=== PATIENT | female | born 1965 | race Caucasian/White ===

== ENCOUNTER 2020-06-04 08:22 | Outpatient (CLI) | payer BC, SELFPAY ==
--- NOTE | ~2020-06-04 | MM_ITS ---
EXAMINATION: MM screening barb BI w paul HISTORY: Screening mammogram TECHNIQUE: Craniocaudal and mediolateral oblique 3-D tomosynthesis images were obtained and synthetic 2-D images were generated. CAD analysis was submitted and interpreted. COMPARISON: 06/10/2019, 11/24/2017, 10/09/2015 bilateral digital screening mammogram examinations BREAST PARENCHYMAL COMPOSITION: There are scattered areas of fibroglandular density. FINDINGS: Biopsy markers are noted on the right; history of right partial mastectomy and chemotherapy in 2013 for right breast cancer, as well as left breast reduction surgery in 2012. There is no evidence of suspicious mass, calcification, or architectural distortion to suggest malign jeanette in either breast. There has been no suspicious interval change. IMPRESSION: 1. No mammographic evidence of malignancy. 2. Recommend routine screening mammography in one year. BI-RADS Category 2: Benign finding(s). Reviewed, dictated and finalized at location A.
== END 2020-06-04 08:23 | disposition home or self-care (01) ==
PROVIDERS: Visit Provider Internal Medicine Medical Oncology
DX: Z12.31 Encounter for screening mammogram for malignant neoplasm of breast (principal)
CPT/HCPCS: 77063; 77067

== ENCOUNTER 2021-04-07 05:21 | Emergency (ER) | payer BC, SELFPAY ==
--- NOTE | ~2021-04-07 | XR_ITS ---
XR wrist RT min 3V 04/07/2021 06:01 Indication: Right wrist pain and swelling Procedure: 4 views right wrist Comparison: No prior studies for comparison. 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 In there is a subtle triquetral fracture dorsally with soft tissue swelling. There is an old radial styloid fracture. Lucency in the lunate, likely degenerative. Impression: 1: Age-indeterminate triquetral fracture. Correlate for point tenderness. Reviewed, dictated and finalized at location A. Impression: 1: Age-indeterminate triquetral fracture. Correlate for point tenderness.
[2021-04-07 05:27] VITALS: BP 135/92; PULSE 86; RESP 16; TEMP 36.1; O2SAT 98
--- NOTE | 2021-04-07 05:39 | ED.UPPEXIN ---
HPI - Extremity Injury (Upper) General Chief Complaint: Extremity Injury, Upper Stated Complaint: Broken wrist Time Seen by Provider: 04/07/21 05:29 History of Present Illness HPI narrative: 55 yo female w/ h/o right wrist fusion presents to the ED for a wrist injury. She fell onto outstretched hand yesterday. She had pain at the time. This has gotten worse throughout the night. This is associated with swelling in the dorsal wrist. Related Data Home Medications Medication Instructions Recorded Confirmed cetirizine [Zyrtec] 10 mg DAILY 04/07/21 Allergies Allergy/AdvReac Type Severity Reaction Status Date / Time CEPHALEXIN MONOHYDRATE Allergy Severe HIVES Uncoded 04/07/21 05:29 OXYCODONE HCL Allergy Severe FLUSHING Uncoded 04/07/21 05:29 Review of Systems Constitutional: Constitutional: Denies weakness Cardiovascular: Cardiovascular: Denies chest pain Respiratory: Respiratory: Denies dyspnea Musculoskeletal: Musculoskeletal: Denies back pain Neurologic: Denies numbness and Denies weakness COUNTS INCLUDE 234 BEDS AT THE [facility] Family History Family History Father Malignant neoplasm of prostate Family history of throat cancer Social History Social History Smoking status: Never smoker Alcohol intake: never Gender identity (if verbalized by the patient): Female Sexual Orientation (if Verbalized by the Patient): Straight or Heterosexual Exam Const: General: no acute distress and alert Orientation/consciousness: patient oriented x3 HENMT: Head: normal to inspection Resp: Effort & Inspection: normal respiratory effort Auscultation: clear to auscultation bilaterally Cardio: Rate: regular rate Rhythm: regular rhythm Other: 2 + right radial Skin: General skin exam: normal color Wounds: no wounds Neuro: General: patient oriented x3, moves all extremities and no focal motor deficits Speech: normal speech Extrem: Other: swelling and mildly increased warmth to dorsal right wrist. Course Vital Signs Vital signs: Vital Signs Temperature 36.1 C L 04/07/21 05:27 Pulse Rate 86 04/07/21 05:27 Respiratory Rate 16 04/07/21 05:27 Blood Pressure 135/92 H 04/07/21 05:27 Pulse Oximetry 98 04/07/21 05:27 Temperature 36.1 C L 04/07/21 05:27 Pulse Rate 71 04/07/21 06:52 Respiratory Rate 16 04/07/21 06:52 Blood Pressure 120/90 04/07/21 06:52 Pulse Oximetry 98 04/07/21 06:52 Procedures Orthopedic Splinting/Casting Injury #1: Side: right Upper Extremity Injury Location: wrist Splint: customized in ED OCL: volar Pre-Procedure Neuro Vascular Exam: normal Post-Procedure Neuro Vascular Exam: normal MDM - Extremity Injury (Upper) Differential Diagnosis Differential diagnosis: Likely sprain and strain of wrist and fracture of wrist Medical Records Attestation: I reviewed the patient's medical records. Discharge Plan Discharge Clinical Impression: Fracture of triquetrum of right wrist Qualifiers: Encounter type: initial encounter Fracture type: closed Fracture alignment: nondisplaced Qualified Code(s): S62.114A - Nondisplaced fracture of triquetrum [cuneiform] bone, right wrist, initial encounter for closed fracture Patient Disposition: Home, Self-Care Condition: Stable Instructions: Antibiotic Form, Wrist Fracture in Adults (ED) Prescriptions: No Action cetirizine [Zyrtec] 10 mg Tablet 10 mg DAILY RF: 0 Follow-up/Referrals: Damon Borjas MD [Physician] - PHYSICIAN,TODDLER NANNY [Primary Care Provider] -
[2021-04-07 06:52] VITALS: BP 120/90; PULSE 71; RESP 16; O2SAT 98
--- NOTE | 2021-04-07 06:53 | PC.NURSE ---
Pt requesting pain medication before application of orthoglass splint. Rates pain 7/10, aching. EDP notified.
[2021-04-07] MEDS: ACETAMINOPHEN 500 MG TABLET 1000 MG PO (06:57)
== END 2021-04-07 08:21 | disposition home or self-care (01) ==
PROVIDERS: Emergency Provider Emergency Medicine
DX: S62.114A Nondisplaced fracture of triquetrum [cuneiform] bone, right wrist, initial encounter for closed fracture (principal); W19.XXXA Unspecified fall, initial encounter
CPT/HCPCS: 29125; 73110; 99284; A9270

== ENCOUNTER 2021-10-29 09:04 | Outpatient (CLI) | payer BC, SELFPAY ==
--- NOTE | ~2021-10-29 | MM_ITS ---
EXAMINATION: MM screening barb BI w paul HISTORY: Screening TECHNIQUE: Craniocaudal and mediolateral oblique 3-D tomosynthesis images were obtained and synthetic 2-D images were generated. CAD analysis was submitted and interpreted. COMPARISON: Comparison to multiple prior studies sequentially, with oldest reviewed study dated 03/31. BREAST PARENCHYMAL COMPOSITION: Breast composed of scattered areas of fibroglandular density FINDINGS: There is no evidence of suspicious mass, calcification, or architectural distortion to sugg est malignancy in either breast. There has been no suspicious interval change. IMPRESSION: 1. No mammographic evidence of malignancy. 2. Recommend routine screening mammography in one year. BI-RADS Category 1: Negative Reviewed, dictated and finalized at location A. WARE DEVELOPER MID LEVEL
== END 2021-10-29 09:05 | disposition home or self-care (01) ==
PROVIDERS: Visit Provider Internal Medicine Medical Oncology
DX: Z12.31 Encounter for screening mammogram for malignant neoplasm of breast (principal)
CPT/HCPCS: 77063; 77067

== ENCOUNTER 2023-01-10 08:48 | Outpatient (CLI) | payer BC, SELFPAY ==
--- NOTE | ~2023-01-10 | MM_ITS ---
EXAMINATION: MM screening barb BI w paul HISTORY: Screening mammogram, history of right breast cancer TECHNIQUE: Craniocaudal and mediolateral oblique 3-D tomosynthesis images were obtained and synthetic 2-D images were generated. CAD analysis was submitted and interpreted. COMPARISON: 10/29/2021, 06/04/2020, 05/14/2019 BREAST PARENCHYMAL COMPOSITION: There are scattered areas of fibroglandular density. FINDINGS: There are stable lumpectomy changes of the right breast. No suspicious mass, calcification, or architectural distortion are identified in either breast to suggest malignancy. There has been no suspicious interval change. IMPRESSION: 1. No mammographic evidence of malignancy. 2. Recommend routine screening mammography in one year. BI-RADS Category 2: Benign finding(s). Reviewed, dictated and finalized at location A.
== END 2023-01-10 08:49 | disposition home or self-care (01) ==
PROVIDERS: PCP Family Medicine; Visit Provider Family Medicine
DX: Z12.31 Encounter for screening mammogram for malignant neoplasm of breast (principal)
CPT/HCPCS: 77063; 77067

== ENCOUNTER 2024-02-08 09:11 | Outpatient (CLI) | payer BC, SELFPAY ==
--- NOTE | ~2024-02-08 | MM_ITS ---
EXAMINATION: MM screening barb BI w paul HISTORY: Screening TECHNIQUE: Craniocaudal and mediolateral oblique 3-D tomosynthesis images were obtained and synthetic 2-D images were generated. CAD analysis was submitted and interpreted. COMPARISON: Comparison to multiple prior studies sequentially, with oldest reviewed study dated 10/2022. BREAST PARENCHYMAL COMPOSITION: Not dense: There are scattered areas of fibroglandular density. FINDINGS: There is no evidence of suspicious mass, calcification, or architectural distortion to sugg est malignancy in either breast. There has been no suspicious interval change. IMPRESSION: 1. No mammographic evidence of malignancy. 2. Recommend routine screening mammography in one year. BI-RADS Category 1: Negative Reviewed, dictated and finalized at location B.
== END 2024-02-08 09:12 | disposition home or self-care (01) ==
PROVIDERS: PCP Family Medicine; Visit Provider Family Medicine
DX: Z12.31 Encounter for screening mammogram for malignant neoplasm of breast (principal)
CPT/HCPCS: 77063; 77067

== ENCOUNTER 2024-08-07 10:14 | Outpatient (CLI) | payer BC, SELFPAY ==
--- NOTE | ~2024-08-07 | MR_ITS ---
EXAMINATION: MR shoulder LT wo con DATE: 08/07/2024 10:57 INDICATION: Left shoulder pain TECHNIQUE: Magnetic resonance imaging (MRI) of the left shoulder was performed without intravenous co ntrast. Sequences included axial PD-weighted FS FSE, coronal oblique PD-weighted FS FSE, coronal obli que T2-weighted FS FSE, sagittal PD-weighted FS FSE, and sagittal T1-weighted SE. COMPARISON: None. FINDINGS: Coracoacromial arch: The acromion undersurface is curved in morphology (type II) with small to moderate-sized anterior and lateral subacromial spurs. There is mild thickening of the acromial side of the coracoacromial ligam ent. Mild acromioclavicular osteoarthritis with mild cystic change at both sides of the joint space a nd tiny inferiorly directed osteophyte at the lateral clavicle. Rotator cuff: Moderate supraspinatus and infraspinatus tendinopathy. There is attenuation of the distal 3 cm the te ndon with partial-thickness tear. There is fraying of the distalmost tendon but no clearly defined ar ticular or bursal sided tear plane. There is a 14 x 9 x 4 mm globular region of low signal intensity along the bursal side of the distal infraspinatus tendon. This corresponds to the amorphous region of calcific density on prior radiographs consistent with calcific tendinitis. Ganglion cyst extending a long a longitudinal split tear of the infraspinatus tendon which extends 4 cm medially from the middl e facet footplate of the tendon with a ganglion cyst measuring up tor 6 x 5 mm in maximal orthogonal dimensions at the level of the glenoid humeral joint line. The teres minor tendon is normal. Mild sub scapularis tendinopathy. There is a split tear occurring between the bursal side of the subscapularis tendon which remains attached to the intact transverse humeral ligament and the deeper portion of th e tendon which remains attached to the lesser tuberosity footplate. The tear defect extends 1 cm medi ally from the medial rim of the intertubercular groove. There is subluxation of the long head biceps tendon across the medial rim of the intertubercular groove and into the split tear defect. Mild supra spinatus atrophy with concave cephalad margin along the posterior half of the muscle belly at the sup raspinatus fossa. Biceps tendon, glenoid labrum and glenohumeral cartilage: 1 moderate tendinopathy without discrete tear of the long head biceps tendon. Mild amorphous increase d signal at the anterosuperior glenoid labrum consistent with mild degenerative tearing. Remainder of the labrum is normal. Glenohumeral cartilage is normal. Fluid: There is increased fluid in the long head biceps tendon sheath relative to the physiologic amount flu id in the right humeral joint space consistent with mild bicipital tenosynovitis. No loose osteochond ral bodies. Small amount of fluid in the subacromial/subdeltoid bursa consistent with mild bursitis. Bones: Bone alignment is normal. No fracture or pathologic marrow replacing process. Mild hypertrophic and c ystic changes at the lesser tuberosity likely related to chronic rotator cuff disease. IMPRESSION: 1. Moderate supraspinatus tendinopathy with ill-defined partial thickness tear of the resulting in at tenuation the distal 3 cm the tendon and frayed appearance at the distal insertion but without a samir rly defined tear defect. 2. Moderate infraspinatus tendinopathy with 14 x 9 x 4 mm globular low signal intensity lesion of lyric cific tendinitis and small longitudinal split tear. 3. Mild subscapularis tendinopathy with small delaminating split tear beginning along the medial rim of the intertubercular groove and allowing secondary medial subluxation of the long head biceps tendo n into the tear defect. 4. Mild bicipital tenosynovitis and moderate tendinopathy without discrete tear of the long head gala ps tendon. 5. Mild degenerative tearing at the anterosuperior glenoid labrum. 6. Mild acromioclavicular osteoarthritis with underlying mild subacromial/subdeltoid bursitis. Reviewed, dictated and finalized at location A. NCE INSTRUCTOR IMPRESSION: 1. Moderate supraspinatus tendinopathy with ill-defined partial thickness tear of the resulting in attenuation the distal 3 cm the tendon and frayed appearanc e at the distal insertion but without a clearly defined tear defect. 2. Moderate infraspinatus tendinopathy with 14 x 9 x 4 mm globular low signal i ntensity lesion of calcific tendinitis and small longitudinal split tear. 3. Mild subscapularis tendinopathy with small delaminating split tear beginning along the medial rim of the intertubercular groove and allowing secondary medi al subluxation of the long head biceps tendon into the tear defect. 4. Mild bicipital tenosynovitis and moderate tendinopathy without discrete tear of the long head biceps tendon. 5. Mild degenerative tearing at the anterosuperior glenoid labrum. 6. Mild acromioclavicular osteoarthritis with underlying mild subacromial/subde ltoid bursitis.
== END 2024-08-07 10:15 | disposition home or self-care (01) ==
LOC: MICIMG 10:15
PROVIDERS: PCP Chiropractor Rehabilitation; Visit Provider Nurse Practitioner Family
DX: S43.432A Superior glenoid labrum lesion of left shoulder, initial encounter (principal); M19.012 Primary osteoarthritis, left shoulder; M75.52 Bursitis of left shoulder; M75.32 Calcific tendinitis of left shoulder; X58.XXXA Exposure to other specified factors, initial encounter
CPT/HCPCS: 73221

== ENCOUNTER 2024-11-28 09:36 | Outpatient (CLI) | payer BC, SELFPAY ==
--- OUTSIDE RECORDS SUMMARY | 2024-11-28 10:02 | XMS_ITS | Clinical Summary ---
Author Organization [facility] Address [address] [place] [address] Care Team Providers Care Braille Coder Name Role Phone Unavailable Primary Care Provider Unavailabl e Allergies Active Allergy Reactions Criticality Noted Date Comments Cephalexin Hives High 06/20/2019 Medications No known medications Active Problems Problem Noted Date Diagnosed Date History of external beam radiation therapy 06/20 SERM use (selective estrogen receptor modulator) 06/20/2019 History of antineoplastic chemotherapy 9 History of invasive ductal carcinoma of breast 1 Social History Tobacco Use Types Packs/Day Years Used Date Smoking Tobacco: Never Smokeless Tobacco: Never Alcohol Use Standard Drinks/Week Comments Not Currently 0 (1 standard drink = 0.6 oz pur e alcohol) Comments No Sex and Gender Information Value Date Recorded Sex Assigned at Not on file Legal Sex Female 11:27 AM CDT Gender Identity Not on file Sexual Orientation Not on file Last Filed Vital Signs Vital Sign Reading Time Taken Comments Blood Pressure 123/85 06/20/2019 8:58 AM CDT Pulse 71 06/20/2019 8:58 AM CDT Temperature 36.5 C (97.7 F) 06/20/2019 8:58 AM CDT Respiratory Rate - - Oxygen Saturation 98% 06/20/2019 8:58 AM CDT Inhaled Oxygen Concentration - - Weight 91.8 kg (202 lb 4.8 oz) 06/20/2019 8:58 A M CDT Height 162.6 cm (5' 4 ) 06/20/2019 8:58 AM CDT Body Mass Index 34.72 06/20/2019 8:58 AM CDT Plan of Treatment Health Maintenance Due Date Last Done Comments DTAP/TDAP/TD VACCINES (1 - Tdap) 1986 HEPATITIS B VACCINES (1 of 3 - 19+ 3-dose series) 1986 PAP SMEAR 1997 COLORECTAL SCREENING 2012 Colorectal Cancer Screening 2012 FIT-DNA Q 3 years 2012 FIT/FOBT Q 1 year 2012 Flex Sig/CT Colonography Q 5 years 2012 ZOSTER VACCINE (1 of 2) 2017 BREAST CANCER SCREENING 05/14/2020 05/14/20 19, 11/24/2017, 10/09/2015 INFLUENZA VACCINE (#1) 2024 PNEUMOCOCCAL VACCINE 0-49 YEARS Aged Out No longer eligible b ased on patient's age to complete this topic Procedures Procedure Name Priority Date/Time Associated Diagnosis Comments MAMMOGRAM REPORT Routine 05/14/2019 from Last 3 Months or Most Recently Relevant to Health Maintenance Results * MAMMOGRAM REPORT (05/14/2019) us Abstract Provider MAMMO ORDERABLES Edited Result - Final from Last 3 Months or Most Recently Relevant to Health Maintenance
--- NOTE | 2024-11-28 10:50 | ECG_ITS ---
Test Date: 2024-11-28 11:09:31 Measurements Intervals [place] Rate: 66 P: 12 IA: 166 QRS: -9 QRSD: 87 T: -6 QT: 422 QTc: 445 Interpretive Statements SINUS RHYTHM WITH OCCASIONAL ECTOPIC PREMATURE COMPLEXES LOW QRS VOLTAGE IN PRECORDIAL LEADS [QRS DEFLECTION < 1.0 mV IN CHEST LEADS] MODERATE VOLTAGE CRITERIA FOR LVH, CONSIDER NORMAL VARIANT [MEETS CRITERIA IN ONE OF: R(aVL), S(V1), R(V5), R(V5/V6)+S(V1)] NONSPECIFIC T-WAVE ABNORMALITY No previous ECG available for comparison Electronically Signed On 11-28-2024 12:12:21 CDT by Rodolfo Lu M.D.
== END 2024-11-28 09:37 | disposition home or self-care (01) ==
PROVIDERS: PCP Family Medicine; Visit Provider Anesthesiology
DX: Z01.818 Encounter for other preprocedural examination (principal); I10 Essential (primary) hypertension; R94.31 Abnormal electrocardiogram [ECG] [EKG]
CPT/HCPCS: 93005

== ENCOUNTER 2024-12-12 01:54 | Day surgery (SDC) | payer BC, SELFPAY ==
[2024-11-27 15:07] VITALS: BMI 41.1
--- NOTE | 2024-11-27 15:33 | PC.NURSE ---
Report to the Outpatient Waiting Room, entrance under the green pavilion located off [facility], at time _0930 on date __12/12/24 . Planned Procedure Time: _1130 .? Time changes happen often and if your time is changed the preop area will call you the afternoon before. - You and your visitor will be asked to self-screen and do not enter if you have any COVID symptoms. Please call surgeon if you need to reschedule. - A mask is optional within the hospital at this time. Patients may have clear liquids (water, carbonated beverages, clear teas, apple juice) until 3 hours prior to surgery with a maximum of 20 ounces. - No food from midnight until time of surgery and no smoking, or chewing tobacco (or any form of nicotine). No chewing gum, candy or mints. - Infants may have breast milk until 4 hours before surgery, infant formula 6 hours prior to surgery. - Children will be allowed to drink immediately following surgery.? If applicable, please bring a bottle or sippy cup to assist with drinking. Juice, water, soda, and popsicles are readily available.? For infants on formula, please bring formula the day of surgery.? Pacifiers are allowed. Take only the following medications with a SIP of water on the morning of surgery: _N/A DO NOT STOP ANY OF YOUR OTHER PRESCRIPTION MEDICATIONS PRIOR TO SURGERY EXCEPT THE FOLLOWING Hold all vitamins and supplements for 3 days per anesthesiologist. Medications to discontinue per physician ____N/A Date to take last dose_N/A Please no make-up, nail irish, hairspray, perfume, deodorant, or body powder the day of surgery.? No jewelry (including any body piercings) or valuables the day of surgery, leave them at home.? Please take a shower or bath the night before, or the morning of, surgery with an antibacterial soap.? Wear comfortable, loose fitting clothing.? Children are encouraged to wear pajamas. - Jewelry must be removed prior to entering the operating room.? Rings and piercings that are not removed may be cut off. - The hospital will not accept responsibility for valuables.? - Please leave all valuables, including medications, at home the day of surgery. If you are going home after surgery, a licensed racing car driver must drive you home.? - NO public transportation without another adult if you receive anesthesia. - We recommend that an adult stay with you for 24 hours following discharge. - We also recommend that you do not drive, make important decision, drink alcoholic beverages, or take any drugs that were not prescribed by your health care provider for at least 24 hours after your discharge time. For Pediatric surgeries, we recommend two adults accompany the child home. Follow any additional instructions given to you from your surgeon. Telephone instructions given to Juany and asked if any additional questions and then verbalized understanding. Patient advised to call surgeon office or pre surgery nurse liaison [phone] if any additional questions.
[2024-12-12] VITALS (10 sets, daily range): BP systolic 100–121; BP diastolic 55–72; PULSE 70–89; RESP 11–18; TEMP 36.1–37.2; O2SAT 94–99; BMI 41.6
--- OUTSIDE RECORDS SUMMARY | 2024-12-12 01:56 | XMS_ITS | Clinical Summary ---
Author Organization [facility] Address [address] [place] [address] Care Team Providers Care Engineering Systems Analyst Name Role Phone Unavailable Primary Care Provider [...] - 19+ 3-dose series) 1986 PAP SMEAR 1988 CERVICAL CANCER SCREENING 1997 HPV/Cotest (30-65) 1997 PAP SMEAR 1997 COLORECTAL SCREENING 2012 Colorectal [...]
--- NOTE | 2024-12-12 07:13 | WPDHPUPDATE1 ---
History and Physical Update Update Date/Time: 12/12/24 07:13 History and Physical has been reviewed, including an updated exam of the patient. There are NO changes in the patient's condition. Risks, benefits, and alternatives have been discussed and questions answered. Patient agrees to proceed with procedure.
[2024-12-12] MEDS: LACTATED RINGERS 1,000 ML 30 ML IV CONT ×2 (08:00→11:18)
[2024-12-12] MEDS: KETOROLAC 15 MG/ML VIAL (*BKC) IV PUSH (08:03)
[2024-12-12] MEDS: ACETAMINOPHEN 500 MG TABLET 1000 MG PO (08:03)
--- NOTE | 2024-12-12 08:13 | WPDANESEPPF ---
Anes - Initial Pre Proc Eval Procedure: Operation Date: 12/12/24 09:30 Proposed Procedures p Left Shoulder Arthroscopy with Debridement, Rotator Cuff Repair, Biceps Repair, Possible Open - Damon Borjas MD Date/Time: 12/12/24 08:13 Surgeon: Damno Borjas MD Pre Op Diagnosis: Lft.Rotator Cuff tear, shoulder pain, biceps tendo Patient Data Age: 59 Gender: F Height: 1.63 m Weight: 108.86 kg Allergies Allergy/AdvReac Type Severity Reaction Status Date / Time cephalexin Allergy Intermediate Hives Verified 12/12/24 08:04 Penicillins Allergy Unknown Unknown Verified 11/27/24 15:04 oxycodone AdvReac Intermediate [place] Verified 11/27/24 15:04 Home Medications ?Medication ?Instructions ?Recorded ?Confirmed ?Type cetirizine 10 mg tablet (Zyrtec) 10 mg PO HS 04/07/21 11/27/24 History triamcinolone acetonide 0.1 % 1 applic topical BID #80 grams 04/03/24 11/27/24 Rx topical cream pravastatin 10 mg tablet See Rx Instructions .Route 11/22/24 11/27/24 Rx .COMPLEX #90 tabs ezetimibe 10 mg tablet See Rx Instructions .Route .COMPLEX 11/27/24 11/27/24 History losartan 25 mg tablet See Rx Instructions .Route 12/06/24 Rx .COMPLEX #90 tabs montelukast 10 mg tablet See Rx Instructions .Route 12/06/24 Rx .COMPLEX #90 tabs Patient hx anesthesia problems: none Family hx anesthesia problems: none Results Review: All pre-operative results and documents have been reviewed as part of the pre-operative evaluation. [facility] Past Medical History Medical History Calcific tendonitis of left shoulder region Asthma Left shoulder pain Elevated BP without diagnosis of hypertension History of breast cancer History of adverse reaction to anesthesia Surgical History Surgical History History of surgery on wrist 1993 Hx of laparoscopic gastric banding History of shoulder surgery 2012 History of breast surgery lumpectomy 2011 Family History Family History Father Malignant neoplasm of prostate Family history of throat cancer Heart disease Mother Asthma Sibling Asthma Social History Social History Social History: Smoking status: Never smoker Second hand tobacco smoke exposure: No Alcohol intake: never Substance use: never Substance use type: does not use Do You Feel Safe in your Home?: Yes Lack of Transportation: No Lack of Food: Never True Current Housing: I Have Housing Concerned About Future Housing: No Difficulty Paying Gas/Electric Bills: No Difficulty Paying for Meds: No Currently Unemployed: YES Education: Don't Know Difficulty w/ Childcare or Family Care: No Living arrangements: with family Occupation/Education: retired Gender identity (if verbalized by the patient): Female Sexual Orientation (if Verbalized by the Patient): Straight or Heterosexual Spiritual care concerns: No Anes - Eval Final PreProcedure Day of Procedure 12/12/24 08:13 Patient weight: morbidly obese Heart: regular rate and rhythm Lungs: clear to auscultation Airway: Mallampati scale class II Neurological: alert and oriented Last oral intake: >/= 8 hours ASA classification: III Emergent: no Anesthetic plan: proceed Anesthesia type and monitoring: general ETT and standard monitoring Results Review: All pre-operative results and documents have been reviewed as part of the pre-operative evaluation. Informed Consent: The patient's anesthetic plan and its attendant risks and benefits were discussed with the patient/family/POA. Questions were solicited and answers provided to the satisfaction of the patient/family/POA.
--- NOTE | 2024-12-12 09:15 | P.OP_ITS ---
Procedure Note - Detailed Date of Procedure 12/12/24 Pre-op Diagnosis Lft.Rotator Cuff tear, shoulder pain, biceps tendo Post-op Diagnosis Same Procedure Performed Left shoulder arthroscopy with extensive debridement including rotator cuff, labrum, articular surface, biceps; subacromial decompression, biceps tenotomy. 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 MRI demonstrates calcific tendinitis of rotator and inflammatory changes with bursitis. Failed conservative treatment with injections, therapy, exercises and activity modification. Presents for operative treatment. Findings Left shoulder arthroscopy with grade 2-3 chondromalacia of the humeral head, grade 1 glenoid. Fraying of the superior labrum without tear. Partial tear with fraying of the biceps tendon, intra-articular. Rotator cuff with tendinosis without discrete tear. Intra-articular synovitis. Subscapularis intact. Large inferior spur acromion with subacromial bursitis. Description of Procedure Patient identified in the preoperative holding. Informed consent given. Operative extremity marked. Patient received intravenous antibiotics. Patient brought to the operating room where underwent general anesthetic by anesthesia team. Positioned supine on operating room table. Time-out performed confirming the patient, site of the surgery and the plan. Patient was then positioned in the beach chair position with careful securing of the head and neck. Left shoulder was then prepped and draped usual sterile surgical fashion using a ChloraPrep skin solution. Local anesthetic with 0.5% Marcaine with epinephrine was used at the portal sites. Standard posterior arthroscopy portal position with a 22 gauge spinal needle and infiltrating of the joint with saline. Eleven blade knife used to incise the skin and blunt penetration of the soft tissue and posterior capsule. Camera and inflow restarted through this portal. The shoulder was inspected and above findings were noted. Anterior portal was then made using positioning from a 22 gauge spinal needle, 11 blade knife for the skin and blunt penetration of the anterior capsule. 4.5 mm arthroscopic shaver introduced and a debridement of the shoulder joint was performed including the glenoid and humeral head, undersurface of the rotator cuff, labrum and the bicep tendon. Arthroscopic wand introduced and bleeding points were coagulated. Any excess synovitis was removed with the Wand. The proximal biceps was 50% torn with surrounding tenosynovitis fraying the tendon. Tenotomy was indicated. Wand was used to release biceps from labrum. Partial retraction of the tendon noted but remained in the intra-articular space. The arthroscope was then positioned into the subacromial space. A lateral portal was made with 11 blade knife and blunt penetration and the shaver was introduced and debridement of the subacromial bursa was performed. From this position the anterolateral subacromial spur could be visualized. 4.0 mm bur introduced and resection of the subacromial spur as well as a partial acromioplasty performed. Bleeding points coagulated with the Wand and any excess tissue removed with the shaver. Debridement the bursa over the rotator cuff was performed of the rotator cuff tendon was then visualized and noted to be partially degenerative but intact without tear. Calcific tendinitis noted on preoperative radiographs visualized then lavaged with 18 gauge spinal needle. The camera was then repositioned in the intra-articular area and no other changes noted. Joint irrigated and suctioned out. The skin incisions were then repaired with 3 O Monocryl subcuticular stitch. Steri-Strips applied followed by sterile dressing. Patient then awoke from anesthesia, extubated and taken to the recovery room in stable condition. All sponge needle and instrument counts correct in the case. Implants none Estimated Blood Loss 10 Drains No Packing No Pathology None sent Complications None Condition Stable Disposition PACU [facility] Billing Surgery - Charge Forward: Surgery Billing ([id number], [id number])
[2024-12-12] MEDS: SCOPOLAMINE 1 MG PATCH 1 PATCH TRANSDERM (09:16)
[2024-12-12] MEDS: CLINDAMYCIN 900 MG/D5W 50 ML 900 MG/50 ML PIGGYBACK 50 MG IVPB (09:47)
--- NOTE | 2024-12-12 10:30 | P.PNAN_ITS ---
Anes - Initial Pre Proc Eval Procedure: Operation Date: 12/12/24 09:30 Proposed Procedures p Left Shoulder Arthroscopy with Debridement, Rotator Cuff Repair, Biceps Repair, Possible Open - Damon Borjas MD Date/Time: 12/12/24 10:30 Surgeon: Damon Borjas MD Pre Op Diagnosis: Lft.Rotator Cuff tear, shoulder pain, biceps tendo Patient Data Age: 59 Gender: F Height: 1.63 m Weight: 110 kg Last Vital Signs Temp 37.2 C 12/12/24 08:22 Pulse 82 12/12/24 08:22 Resp 18 12/12/24 08:22 BP 119/72 12/12/24 08:22 Pulse Ox 97 12/12/24 08:22 O2 Del Method Room Air 12/12/24 08:22 Allergies Allergy/AdvReac Type Severity Reaction Status Date / Time cephalexin Allergy Intermediate Hives Verified 12/12/24 08:04 Penicillins Allergy Unknown Unknown Verified 11/27/24 15:04 oxycodone AdvReac Intermediate Flushing Verified 11/27/24 15:04 Home Medications ?Medication ?Instructions ?Recorded ?Confirmed ?Type cetirizine 10 mg tablet (Zyrtec) 10 mg PO HS 04/07/21 11/27/24 History triamcinolone acetonide 0.1 % 1 applic topical BID #80 grams 04/03/24 11/27/24 Rx topical cream pravastatin 10 mg tablet See Rx Instructions .Route 11/22/24 11/27/24 Rx .COMPLEX #90 tabs ezetimibe 10 mg tablet See Rx Instructions .Route .COMPLEX 11/27/24 11/27/24 History losartan 25 mg tablet See Rx Instructions .Route 12/06/24 Rx .COMPLEX #90 tabs montelukast 10 mg tablet See Rx Instructions .Route 12/06/24 Rx .COMPLEX #90 tabs hydrocodone 7.5 mg-acetaminophen 1 tablet PO Q6H PRN pain #20 tabs 12/12/24 Rx 325 mg tablet ibuprofen 800 mg tablet 800 mg PO TID PRN pain #30 tabs 12/12/24 Rx ondansetron 8 mg disintegrating 8 mg PO Q8H PRN nausea and 12/12/24 Rx tablet vomiting #10 tabs polyethylene glycol 3350 17 gram 17 g PO DAILY PRN constipation #14 12/12/24 Rx oral powder packet ea sennosides 8.6 mg-docusate sodium 1 tab-cap PO BID PRN constipation 12/12/24 Rx 50 mg tablet (Senna with Docusate #20 tabs Sodium) Patient hx anesthesia problems: none Family hx anesthesia problems: none Results Review: All pre-operative results and documents have been reviewed as part of the pre- operative evaluation. [facility] Past Medical History Medical History Calcific tendonitis of left shoulder region Asthma Left shoulder pain Elevated BP without diagnosis of hypertension History of breast cancer History of adverse reaction to anesthesia Surgical History Surgical History History of surgery on wrist 1993 Hx of laparoscopic gastric banding History of shoulder surgery 2012 History of breast surgery lumpectomy 2011 Family History Family History Father Malignant neoplasm of prostate Family history of throat cancer Heart disease Mother Asthma Sibling Asthma Social History Social History Social History: Smoking status: Never smoker Second hand tobacco smoke exposure: No Alcohol intake: never Substance use: never Substance use type: does not use Do You Feel Safe in your Home?: Yes Lack of Transportation: No Lack of Food: Never True Current Housing: I Have Housing Concerned About Future Housing: No Difficulty Paying Gas/Electric Bills: No Difficulty Paying for Meds: No Currently Unemployed: YES Education: Don't Know Difficulty w/ Childcare or Family Care: No Living arrangements: with family Occupation/Education: retired Gender identity (if verbalized by the patient): Female Sexual Orientation (if Verbalized by the Patient): Straight or Heterosexual Spiritual care concerns: No Anes - Eval Final PreProcedure Day of Procedure 12/12/24 10:30 Patient weight: morbidly obese Heart: regular rate and rhythm Lungs: clear to auscultation Airway: Mallampati scale class II Neurological: alert and oriented Last oral intake: >/= 8 hours ASA classification: III Emergent: no Anesthetic plan: proceed Anesthesia type and monitoring: general ETT and standard monitoring Results Review: All pre-operative results and documents have been reviewed as part of the pre- operative evaluation. Informed Consent: The patient's anesthetic plan and its attendant risks and benefits were discussed with the patient/family/POA. Questions were solicited and answers provided to the satisfaction of the patient/family/POA.
--- NOTE | 2024-12-12 10:30 | WPDANESPNB ---
Anes - Peripheral Nerve Block Date/Time: 12/12/24 10:30 I have discussed with the patient/family/POA the placement of a peripheral nerve block for post-operative pain management, including associated risks, benefits, complications, and side effects. Alternative methods of post-operative analgesia were detailed. Questions were solicited and answers provided to the satisfaction of the patient/family/POA. Time-Out: A pre-procedural Time-Out was completed immediately before starting the procedure and confirmed: Patient Identification, Site, Procedure, Patient Position and the Availability of Requisite Equipment. Clinical Indications: Acute post-operative pain management requested by the operative surgeon. Nerve Block Insertion Note Anes-nerve block: interscalene left Patient position: supine Skin prep: chlorhexidine Needle: 22 gauge, stimulating, insulated echogenic needle. Needle length: 50 mm Technique: ultrasound Injectate: bupivacaine 0.5% with epi 5 mcg/ml (20cc- no epi) Observations: tolerated well Complications: none Procedure start time:: 932 Procedure end time:: 936
[2024-12-12] MEDS: ONDANSETRON INJ 4 MG/2 ML VIAL IV PUSH (12:38)
== END 2024-12-12 13:23 | disposition home or self-care (01) ==
PROVIDERS: PCP Family Medicine; Visit Provider Orthopaedic Surgery
PROC: (CPT 29805; principal; 2024-12-12 09:30)
DX: M75.82 Other shoulder lesions, left shoulder (principal); M75.22 Bicipital tendinitis, left shoulder; M94.212 Chondromalacia, left shoulder; M65.812 Other synovitis and tenosynovitis, left shoulder; M75.52 Bursitis of left shoulder; G89.18 Other acute postprocedural pain; E66.01 Morbid (severe) obesity due to excess calories; Z68.41 Body mass index [BMI] 40.0-44.9, adult
CPT/HCPCS: 29823; 64415; A4565; A9270; J1100; J1885; J2003; J2250; J2405; J2704; J3010; J7120

== ENCOUNTER 2025-03-13 08:14 | Outpatient (CLI) | payer BC, SELFPAY ==
--- NOTE | ~2025-03-13 | MM_ITS ---
EXAMINATION: MM screening barb BI w paul HISTORY: Screening mammogram TECHNIQUE: Craniocaudal and mediolateral oblique 3-D tomosynthesis images were obtained and synthetic 2-D images were generated. CAD analysis was submitted and interpreted. COMPARISON: 02/08/2024, 01/10/2023, 10/29/2021 BREAST PARENCHYMAL COMPOSITION:Not Dense. The breasts are almost entirely fatty FINDINGS: No suspicious mass, calcification, or architectural distortion are identified in either janis ast to suggest malignancy. There has been no suspicious interval change. IMPRESSION: No mammographic evidence of malignancy. Recommend routine screening mammography in one year. BI-RADS Category 1: Negative Reviewed, dictated and finalized at location .
--- OUTSIDE RECORDS SUMMARY | 2025-03-13 08:20 | XMS_ITS | Clinical Summary ---
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 Name Role Phone Unavailable Primary Care Provider [...] A M CDT Height 162.6 cm (5' 4) 06/20/2019 8:58 AM CDT Body Mass Index 34.72 06/20/2019 8:58 AM CDT Plan of Treatment Health Maintenance Due Date Last Done Comments DTAP/TDAP/TD VACCINES (1 - Tdap) 1986 HEPATITIS B VACCINES (1 of 3 - 19+ 3-dose series) 1986 HPV/Cotest (21-29) 1988 CERVICAL CANCER SCREENING 1997 HPV/Cotest (30-65) 1997 PAP SMEAR 1997 COLORECTAL SCREENING 2012 Colorectal Cancer Screening 2012 FIT-DNA Q 3 years 2012 FIT/FOBT Q 1 year 2012 Flex Sig/CT Colonography Q 5 years 2012 ZOSTER VACCINE (1 of 2) 2017 BREAST CANCER SCREENING 05/14/2020 05/14/20 19, 11/24/2017, 10/09/2015 INFLUENZA VACCINE (#1) 2025 Procedures Procedure Name Priority Date/Time Associated Diagnosis Comments MAMMOGRAM REPORT Routine 05/14/2019 from Last 3 Months or Most Recently Relevant to Health Maintenance Results * MAMMOGRAM REPORT (05/14/2019) us Abstract Provider MAMMO ORDERABLES Edited Result - Final from Last 3 Months or Most Recently Relevant to Health Maintenance
== END 2025-03-13 08:15 | disposition home or self-care (01) ==
LOC: ANHIMG 08:17
PROVIDERS: PCP Family Medicine; Visit Provider Family Medicine
DX: Z12.31 Encounter for screening mammogram for malignant neoplasm of breast (principal)
CPT/HCPCS: 77063; 77067